=== PATIENT | female | born 1950 | race Caucasian/White ===

== ENCOUNTER 2019-09-22 11:51 | Observation (INO) ==
[2019-09-22] MEDS ORDERED: 0.9 % Sodium Chloride 1,000 ML IVC ONE (12:39)
[2019-09-22 14:43] LABS: Basophils % 0.2 %; Eosinophils % 0.1 %; Hematocrit 39.5 % (35.3-44.9); Hemoglobin 11.9 g/dL (11.5-15.4); Immature Granulocytes % 0.6 % (0-4); Lymphocytes # 0.8 K/mcL (0.6-4.6); Lymphocytes % 4.3 %; Mean Corpuscular HGB Conc 30.1 g/dL (31.6-35.5); Mean Corpuscular Hemoglobin 25.2 pg (28.0-33.3); Mean Corpuscular Volume 83.7 fL (83.0-100.0); Mean Platelet Volume 9.5 fL (9.4-12.4); Monocytes # 0.9 K/mcL (0.0-1.3); Monocytes % 5.3 %; Neutrophils # 15.8 K/mcL (1.6-8.9); Platelet Count 154 K/mcL (140-400); Red Blood Count 4.72 M/mcL (3.82-4.97); Red Cell Distribution Width 16.1 % (11.5-14.5); Segmented Neutrophils % 89.5 %; White Blood Count 17.7 K/mcL (4.3-11.1)
[2019-09-22 14:58] LABS: Calcium 9.4 mg/dL (8.6-10.3)
[2019-09-22 15:02] LABS: INR 5.2; Prothrombin Time 59.6 Seconds (9.4-12.1)
[2019-09-22] MEDS ORDERED: Isovue-370 500 ML BOTTLE IVP ONE (15:41)
[2019-09-22 16:08] LABS: Bacteria,Urine Few per hpf (None-Few); Bilirubin,Urine Small (Negative); Blood,Urine Trace (Negative); Calcium Oxalate Crystals,Urine Present; Clarity,Urine Turbid (Clear); Color,Urine Yellow (Yellow); Glucose,Urine (UA) Normal (Normal); Hyaline Casts,Urine Few per lpf (None Seen); Ketones,Urine Negative (Negative); Leukocyte Esterase,Urine Large (Negative); Mucus,Urine Few per lpf (None-Few); Nitrite,Urine Negative (Negative); PH,Urine 7.5 pH Units (5.0-8.0); Protein,Urine 100 mg/dL (Neg-Trace); RBC,Urine 15-30 per hpf (0-3); Renal Epithelial Cells,Urine Few per hpf (None-Few); Specific Gravity,Urine > 1.030 (1.010-1.025); Squamous Epithelial Cell,Urine Many per hpf (None-Few); Transitional Epi Cells,Urine Few per hpf (None-Few); WBC,Urine 50-100 per hpf (0-3)
[2019-09-22] MEDS ORDERED: cefTRIAXone 1,000 MG in Water for inj. (sterile) 10 ML IVP ONE (16:10)
[2019-09-22] MEDS ORDERED: Anticoagulation Consult 1 Each MC ONE (17:54)
[2019-09-22] MEDS ORDERED: Naloxone 0.4 MG/ML INJ IVP PRN (20:30)
[2019-09-22] MEDS ORDERED: *HR* Promethazine 25 MG/ML VIAL IVP PRN (20:30)
[2019-09-22] MEDS ORDERED: amLODIPine 5 MG TABLET PO PRN (20:30)
[2019-09-22] MEDS ORDERED: Acetaminophen 325 MG TABLET PO PRN (20:30)
[2019-09-22] MEDS ORDERED: Warfarin perPT PO PRN (20:50)
[2019-09-22] MEDS: 0.9 % Sodium Chloride 1,000 ML IVC SCH (21:00)
[2019-09-22] MEDS: carvediloL 6.25 MG TABLET PO SCH (21:00)
[2019-09-23] MEDS: 0.9 % Sodium Chloride 1,000 ML IVC SCH (06:55)
[2019-09-23 07:03] LABS: Basophils % 0.3 %; Eosinophils # 0.1 K/mcL (0.0-0.6); Eosinophils % 0.7 %; Hematocrit 37.9 % (35.3-44.9); Hemoglobin 11.4 g/dL (11.5-15.4); Immature Granulocytes % 0.4 % (0-4); Lymphocytes # 0.6 K/mcL (0.6-4.6); Lymphocytes % 5.8 %; Mean Corpuscular HGB Conc 30.1 g/dL (31.6-35.5); Mean Corpuscular Hemoglobin 25.1 pg (28.0-33.3); Mean Corpuscular Volume 83.5 fL (83.0-100.0); Mean Platelet Volume 9.6 fL (9.4-12.4); Monocytes # 0.9 K/mcL (0.0-1.3); Monocytes % 8.2 %; Neutrophils # 9.1 K/mcL (1.6-8.9); Platelet Count 143 K/mcL (140-400); Red Blood Count 4.54 M/mcL (3.82-4.97); Red Cell Distribution Width 16.3 % (11.5-14.5); Segmented Neutrophils % 84.6 %; White Blood Count 10.8 K/mcL (4.3-11.1)
[2019-09-23 07:17] LABS: INR 4.6; Prothrombin Time 52.2 Seconds (9.4-12.1)
[2019-09-23 07:24] LABS: Calcium 8.6 mg/dL (8.6-10.3); Magnesium 1.9 mg/dL (1.6-2.6); Phosphorous 2.6 mg/dL (2.7-4.5); Potassium 3.9 mEq/L (3.5-5.1)
[2019-09-23] MEDS: cefTRIAXone 1,000 MG in Water for inj. (sterile) 10 ML IVP SCH (08:55)
[2019-09-23] MEDS: carvediloL 6.25 MG TABLET PO SCH ×2 (08:55→16:32)
[2019-09-23] MEDS ORDERED: DilTIAZem 50 MG/50 ML IV.SOLN IVC SCH (17:45)
[2019-09-23] MEDS ORDERED: *HR* Warfarin 5 MG TABLET PO SCH (18:00)
[2019-09-24 02:47] LABS: Hematocrit 35.8 % (35.3-44.9); Hemoglobin 10.7 g/dL (11.5-15.4); Mean Corpuscular HGB Conc 29.9 g/dL (31.6-35.5); Mean Corpuscular Hemoglobin 25.1 pg (28.0-33.3); Mean Platelet Volume 9.5 fL (9.4-12.4); Platelet Count 148 K/mcL (140-400); Red Blood Count 4.26 M/mcL (3.82-4.97); Red Cell Distribution Width 16.6 % (11.5-14.5); White Blood Count 9.6 K/mcL (4.3-11.1)
[2019-09-24 02:52] LABS: INR 2.5
[2019-09-24] MEDS: carvediloL 6.25 MG TABLET PO SCH ×2 (08:36→15:05)
[2019-09-24] MEDS: cefTRIAXone 1,000 MG in Water for inj. (sterile) 10 ML IVP SCH (08:36)
[2019-09-24] MEDS ORDERED: *HR* Warfarin 5 MG TABLET PO STA (10:31)
[2019-09-24 15:26] VITALS: BP 117/81
== END 2019-09-24 17:55 | disposition home or self-care (01) ==
LOC: 2NENU 11:51 → EMEROOARM 11:51 → 2NENU 19:49
PROVIDERS: ADMIT Internal Medicine; ATTEND Internal Medicine